=== PATIENT | male | born 2000 | race Caucasian/White ===

== ENCOUNTER 2025-01-08 13:33 | Emergency (ER) | payer OTHER ==
[2025-01-08 14:21] LABS: #Basophils 0.03 10x3/uL (0.0-0.2); #Eosinophils 0.25 10x3/uL (0.0-0.5); #Monocytes 0.68 10x3/uL (0.0-1.1); #Neutrophils 5.71 10x3/uL (1.5-8.4); %Basophils 0.4 % (0.0-2.0); %Eosinophils 2.9 % (0.0-6.0); %Lymphocytes 21.9 % (18.0-47.0); %Monocytes 7.9 % (0.0-10.0); %Neutrophils 66.7 % (40.0-75.0); Hematocrit 45.3 % (38.8-50.0); Hemoglobin 16.1 g/dL (13.5-17.5); Mean Corpuscular Hemoglobin 28.8 pg (27.0-33.0); Mean Corpuscular Volume 80.9 fL (81.2-95.1); Platelet Count 197 10x3/uL (150-450); Red Blood Cell (RBC) Count 5.60 10x6/uL (4.32-5.72); White Blood Cell (WBC) Count 8.57 10x3/uL (3.5-10.5)
[2025-01-08 14:35] LABS: ALT (SGPT) 17 U/L (Less than 45); AST (SGOT) 28 U/L (11-34); Albumin 4.9 g/dL (3.1-4.5); Alkaline Phosphatase 71 U/L (40-110); Anion Gap 15 mmol/L (10-20); BUN (Urea Nitrogen) 21 mg/dL (8.9-20.6); Bilirubin, Total 1.1 mg/dL (0.3-1.2); CK (CPK) 186 U/L (30-200); Calc. Creatinine Clearance 0 mL/min (70-130); Calcium 10.1 mg/dL (7.8-10.44); Carbon Dioxide 21 mmol/L (22-29); Chloride 107 mmol/L (98-107); Globulin 2.9 g/dL (2.4-3.5); Glucose 92 mg/dL (70-105); Potassium 3.8 mmol/L (3.5-5.1); Sodium 139 mmol/L (136-145)
[2025-01-08 14:41] LABS: Troponin I 0.057 ng/mL (< 0.028)
== END 2025-01-08 16:38 | disposition home or self-care (01) ==
LOC: CSHERS 13:33
DX: R06.02 Shortness of breath (principal); R79.89 Other specified abnormal findings of blood chemistry; F17.200 Nicotine dependence, unspecified, uncomplicated
CPT/HCPCS: 71045; 80053; 82550; 83880; 84484; 85025; 85379; 93005